=== PATIENT | male | born 1980 | race Caucasian/White ===

== ENCOUNTER 2023-08-08 16:48 | Inpatient (IN) | payer OTHER ==
[2023-08-08 17:29] VITALS: BMI 24.2
[2023-08-08] MEDS ORDERED: ACETAMINOPHEN 325 MG TABLET (FP) PO PRN (20:49)
[2023-08-08] MEDS ORDERED: DICYCLOMINE HCL 10 MG CAPSULE PO PRN (20:49)
[2023-08-08] MEDS ORDERED: LOPERAMIDE HCL 2 MG CAPSULE PO PRN (20:49)
[2023-08-08] MEDS ORDERED: BENZOCAINE/MENTHOL (CHLORASEPTIC ) LOZENGE MM PRN (20:49)
[2023-08-08] MEDS ORDERED: POLYETHYLENE GLYCOL (HEALTHYLAX) 3350 17 GM PACKET PO PRN (20:49)
[2023-08-08] MEDS ORDERED: MAG HYDROX/AL HYDROX/SIMETH 30 ML UNIT-DOSE CUP PO PRN (20:49)
[2023-08-08] MEDS ORDERED: ONDANSETRON *ODT* 4 MG TABLET SL PRN (20:49)
[2023-08-08] MEDS ORDERED: NICOTINE POLACRILEX 2 MG GUM BUC PRN (20:49)
[2023-08-08] MEDS ORDERED: NALOXONE HCL (KLOXXADO) 8 MG SPRAY NS PRN (20:49)
[2023-08-08] MEDS ORDERED: IBUPROFEN 400 MG TABLET (FP) PO PRN (20:49)
[2023-08-08] MEDS ORDERED: guaiFENesin 600 MG TABLET.ER (FP) PO PRN (20:49)
[2023-08-08] MEDS ORDERED: MAGNESIUM HYDROX 2400MG/30ML ORAL SUSPENSION 30 ML CUP PO PRN (20:49)
[2023-08-08] MEDS ORDERED: BISMUTH SUBSALICYLATE 524 MG/30 ML PO PRN (20:49)
[2023-08-08] MEDS ORDERED: NALOXONE HCL 0.4 MG/ML VIAL IM PRN (20:49)
[2023-08-08] MEDS ORDERED: BENZONATATE 200 MG CAPSULE PO PRN (20:49)
[2023-08-08] MEDS ORDERED: IBUPROFEN 600 MG TABLET (FP) PO ONE (21:24)
[2023-08-08] MEDS: IBUPROFEN 600 MG TABLET (FP) PO PRN (21:26)
[2023-08-08] MEDS: THIAMINE HCL 100 MG TABLET (FP) PO SCH (22:41)
[2023-08-08] MEDS: hydrOXYzine PAMOATE 25 MG CAPSULE (FP) PO PRN (22:41)
[2023-08-08] MEDS: METHOCARBAMOL 500 MG TABLET PO PRN (22:41)
[2023-08-08] MEDS: MELATONIN 5 MG TABLETS PO SCH (22:41)
[2023-08-08] MEDS: LIDOCAINE PATCH REMOVAL MC SCH (22:41)
[2023-08-08] MEDS: PATIENT'S OWN MEDICATION (NON-FORMULARY) (Cefdinir [Cefdinir] 300 MG Capsule) PO SCH (23:04)
[2023-08-08] MEDS: CLINDAMYCIN HCL 300 MG CAPSULE PO SCH (23:24)
[2023-08-08] MEDS: CEFUROXIME AXETIL 500 MG TABLET PO SCH (23:24)
[2023-08-09] MEDS ORDERED: CLINDAMYCIN HCL 300 MG CAPSULE PO SCH
[2023-08-09] MEDS: CLINDAMYCIN HCL 150 MG CAPSULE (FP) PO SCH (00:53)
[2023-08-09] MEDS: methaDONE HCL 10 MG TABLET PO ONE (09:37)
[2023-08-09] MEDS: cloNIDine HCL 0.1 MG TABLET PO SCH (09:37)
[2023-08-09] MEDS: TAMSULOSIN HCL 0.4 MG CAP PO SCH (09:37)
[2023-08-09] MEDS: LIDOCAINE 5% TOPICAL PATCH TP SCH (09:38)
[2023-08-09] MEDS: PRENATAL VITAMINS W/ FOLIC ACID TABLET (FP) PO SCH (09:38)
[2023-08-09] MEDS ORDERED: methaDONE HCL 10 MG TABLET PO PRN (10:47)
[2023-08-09 11:46] LABS: HEMOGLOBIN 12.6 GM/dL (11.7-16.9); MCH 31.7 pg (25.7-33.7); MEAN CELL VOLUME 93.4 fl (80-96); PLATELET COUNT 438 10^3/uL (134-434); RBC 3.96 M/mm3 (4.00-5.60); RDW 13.1 % (11.9-15.9); WHITE BLOOD COUNT 9.1 K/mm3 (4.0-10.0)
[2023-08-09 12:01] LABS: POTASSIUM 4.7 mmol/L (3.5-5.1)
[2023-08-09 12:08] LABS: TOT PROT 7.1 g/dl (6.4-8.2)
[2023-08-09 12:11] LABS: ALBUMIN 2.7 g/dl (3.4-5.0); BLOOD UREA NITROGEN 11.5 mg/dL (7-18)
[2023-08-09 12:13] LABS: CALCIUM 8.9 mg/dL (8.5-10.1)
[2023-08-09 12:14] LABS: CREATININE 0.5 mg/dL (0.55-1.3)
[2023-08-09 12:15] LABS: BILIRUBIN,TOTAL 0.5 mg/dL (0.2-1)
[2023-08-10] MEDS: methaDONE 40 MG, methaDONE 10 MG PO ONE (05:21)
[2023-08-10 09:05] VITALS: RESP 16
[2023-08-10 12:52] VITALS: BP 103/62; PULSE 57; TEMP 96.9
[2023-08-11] MEDS ORDERED: cloNIDine HCL 0.1 MG TABLET PO PRN
[2023-08-11] MEDS ORDERED: methaDONE 40 MG, methaDONE 20 MG PO ONE (06:00)
[2023-08-12] MEDS ORDERED: methaDONE 40 MG, methaDONE 30 MG PO ONE (06:00)
[2023-08-13] MEDS ORDERED: methaDONE HCL 40 MG DISPERSABLE TABLET PO ONE (06:00)
[2023-08-14] MEDS ORDERED: methaDONE 80 MG, methaDONE 10 MG PO ONE (06:00)
== END 2023-08-10 16:02 | disposition left against medical advice (07) | DRG 770 ==
LOC: YASAS 16:48 → UNDOADMIN 21:22 → Y3N 21:22
PROVIDERS: ADMIT Allergy & Immunology; ATTEND Surgery
PROC: HZ2ZZZZ Detoxification Services for Substance Abuse Treatment (ICD-10-PCS; principal; 2023-08-08)
DX: F11.23 Opioid dependence with withdrawal (principal); F14.20 Cocaine dependence, uncomplicated; F17.210 Nicotine dependence, cigarettes, uncomplicated; L02.212 Cutaneous abscess of back [any part, except buttock and flank]; M54.50 Low back pain, unspecified; G89.29 Other chronic pain; Z99.89 Dependence on other enabling machines and devices
CPT/HCPCS: 36415; 80053; 85027; 93005; 93010

== ENCOUNTER 2024-03-06 14:09 | Inpatient (IN) | payer OTHER ==
[2024-03-06 15:07] VITALS: BMI 21.8
[2024-03-06] MEDS ORDERED: ACETAMINOPHEN 325 MG TABLET (FP) PO PRN (18:34)
[2024-03-06] MEDS ORDERED: IBUPROFEN 600 MG TABLET (FP) PO PRN (18:34)
[2024-03-06] MEDS ORDERED: cloNIDine HCL 0.1 MG TABLET PO PRN (18:34)
[2024-03-06] MEDS ORDERED: BISMUTH SUBSALICYLATE 524 MG/30 ML PO PRN (18:34)
[2024-03-06] MEDS ORDERED: MAGNESIUM HYDROX 2400MG/30ML ORAL SUSPENSION 30 ML CUP PO PRN (18:34)
[2024-03-06] MEDS ORDERED: ONDANSETRON *ODT* 4 MG TABLET SL PRN (18:34)
[2024-03-06] MEDS ORDERED: DICYCLOMINE HCL 10 MG CAPSULE PO PRN (18:34)
[2024-03-06] MEDS ORDERED: hydrOXYzine PAMOATE 25 MG CAPSULE (FP) PO PRN (18:34)
[2024-03-06] MEDS ORDERED: IBUPROFEN 400 MG TABLET (FP) PO PRN (18:34)
[2024-03-06] MEDS ORDERED: POLYETHYLENE GLYCOL (HEALTHYLAX) 3350 17 GM PACKET PO PRN (18:34)
[2024-03-06] MEDS ORDERED: BENZONATATE 200 MG CAPSULE PO PRN (18:34)
[2024-03-06] MEDS ORDERED: NICOTINE POLACRILEX 2 MG GUM BUC PRN (18:34)
[2024-03-06] MEDS ORDERED: METHOCARBAMOL 500 MG TABLET PO PRN (18:34)
[2024-03-06] MEDS ORDERED: BENZOCAINE/MENTHOL (CHLORASEPTIC ) LOZENGE MM PRN (18:34)
[2024-03-06] MEDS ORDERED: guaiFENesin 600 MG TABLET.ER (FP) PO PRN (18:34)
[2024-03-06] MEDS ORDERED: MAG HYDROX/AL HYDROX/SIMETH 30 ML UNIT-DOSE CUP PO PRN (18:34)
[2024-03-06] MEDS ORDERED: NALOXONE (NARCAN) HCL 4 MG/0.1 ML SPRAY NS PRN (18:34)
[2024-03-06] MEDS: methaDONE HCL 10 MG TABLET (FOR DETOX USE ONLY) PO ONE (19:06)
[2024-03-06] MEDS: THIAMINE 100 MG TABLET PO SCH (22:18)
[2024-03-06] MEDS: methaDONE HCL 10 MG TABLET PO ONE (22:27)
[2024-03-06] MEDS: MELATONIN 5 MG TABLETS PO SCH (22:27)
[2024-03-07] MEDS: PRENATAL VITAMINS W/ FOLIC ACID TABLET (FP) PO SCH (09:35)
[2024-03-07] MEDS: NICOTINE 21 MG/24 HOURS TOPICAL PATCH TD SCH (09:37)
[2024-03-07 10:46] LABS: HEMOGLOBIN 11.5 GM/dL (11.7-16.9); MCH 30.5 pg (25.7-33.7); MEAN CELL VOLUME 92.4 fl (80-96); MEAN PLT VOLUME 6.7 fl (7.5-11.1); PLATELET COUNT 409 10^3/uL (134-434); RBC 3.79 M/mm3 (4.00-5.60); WHITE BLOOD COUNT 9.2 K/mm3 (4.0-10.0)
[2024-03-07 10:50] LABS: POTASSIUM 4.4 mmol/L (3.5-5.1)
[2024-03-07 10:59] LABS: BLOOD UREA NITROGEN 8.9 mg/dL (7-18); CALCIUM 8.8 mg/dL (8.5-10.1)
[2024-03-07 11:00] LABS: ALBUMIN 2.8 g/dl (3.4-5.0)
[2024-03-07 11:03] LABS: CREATININE 0.6 mg/dL (0.55-1.3)
[2024-03-07 11:05] LABS: BILIRUBIN,TOTAL 0.2 mg/dL (0.2-1); TOT PROT 6.5 g/dl (6.4-8.2)
[2024-03-07 11:53] LABS: HIV INTERPRETATION NEGATIVE (NEGATIVE)
[2024-03-08] MEDS: LOPERAMIDE HCL 2 MG CAPSULE PO PRN (07:35)
[2024-03-08] MEDS: TAMSULOSIN HCL 0.4 MG CAP PO SCH (07:39)
[2024-03-08] MEDS: methaDONE HCL 10 MG TABLET (FOR DETOX USE ONLY) PO ONE ×2 (10:03→14:53)
[2024-03-08] MEDS: diazePAM 5 MG TABLET PO PRN (14:54)
[2024-03-08 22:00] VITALS: RESP 16
[2024-03-09 05:43] VITALS: TEMP 97.8
[2024-03-09] MEDS ORDERED: P-EPHED 60MG/TRIPROLIDI 2.5MG TABLET PO PRN (08:55)
[2024-03-09 09:20] VITALS: BP 138/82; PULSE 75
[2024-03-09] MEDS: NALOXONE (NYS OPIOID OVERDOSE PROGRAM) 4 MG/0.1 ML SPRAY NS PRN (10:44)
[2024-03-10] MEDS ORDERED: methaDONE HCL 10 MG TABLET (FOR DETOX USE ONLY) PO ONE (10:00)
== END 2024-03-09 10:54 | disposition home or self-care (01) | DRG 773 ==
LOC: YASAS 14:09 → Y3N 18:05 → Y3NR 19:52 → Y3N 19:53
PROVIDERS: ADMIT Allergy & Immunology; ATTEND Surgery
PROC: HZ2ZZZZ Detoxification Services for Substance Abuse Treatment (ICD-10-PCS; principal; 2024-03-06)
DX: F11.23 Opioid dependence with withdrawal (principal); F14.20 Cocaine dependence, uncomplicated; F17.210 Nicotine dependence, cigarettes, uncomplicated; B18.2 Chronic viral hepatitis C; M54.50 Low back pain, unspecified; G89.29 Other chronic pain; Z59.00 Homelessness unspecified
CPT/HCPCS: 36415; 80053; 80305; 80307; 85027; 86780; 86803; 87389; 87522